=== PATIENT | female | born 1950 | race Caucasian/White ===

== ENCOUNTER 2016-07-02 19:12 | Emergency (ER) | payer MEDICARE, OTHER ==
--- NOTE | ~2016-07-02 | CR170 ---
[facility]. [facility] A Service of [facility] RADIOLOGY TEXT RESULTS PATIENT: CORAL RODAS LOCATION: SED : 46 UNIT #: [id number] AGE: [address]: Jessica Kam SEX: F ORDER DR: [id number] [address] [address] [id number] E MR#: [id number] Acc #: [id number] NAME: CORAL RODAS. : 1950 SEX: F STUDY DATE/TIME: 07/02/2016 21:17 UNIT: SED ROOM: STUDY DESCRIPTION: CR Knee 2 Views Rt Attending Physician: Jessica Kam Pa-C Ordering Physician: Kyle Black M.D. Primary Care Physician: Sonya Camargo MEDICAL IMAGING REPORT This report is preliminary unless electronic signature is present. EXAM Right knee 2 views 07/02/2016 HISTORY Right knee pain status post fall today with swelling. FINDINGS 2 views of the right knee demonstrate no fracture. The bones are normally mineralized and the joint spaces normally maintained. There is a small knee joint effusion. IMPRESSION Small knee joint effusion. No evidence of fracture Dictated by... Juarez Angulo M.D. THIS IS AN ELECTRONICALLY VERIFIED REPORT Juarez Angulo M.D. at 07/03/2016 10:57 AM VAISHNAVI/odilia TD: 07/03/2016 05:18 JOB #: [id number] MEDICAL IMAGING REPORT
--- NOTE | ~2016-07-02 | CT71 ---
[facility] A Service [facility] RADIOLOGY TEXT RESULTS PATIENT: CORAL RODAS LOCATION: SED : 46 UNIT #: [id number] AGE: [address]: Jessica Kam SEX: F ORDER DR: [id number] [address] [address] [id number] E MR#: [id number] Acc #: [id number] NAME: CORAL RODAS. : 1950 SEX: F STUDY DATE/TIME: 07/02/2016 21:36 UNIT: SED ROOM: STUDY DESCRIPTION: CT Head Wo Contrast Attending Physician: Jessica Kam Pa-C Ordering Physician: Kyle Black M.D. Primary Care Physician: Sonya Camargo MEDICAL IMAGING REPORT This report is preliminary unless electronic signature is present. EXAM CT head without contrast dated 07/02/2016. COMPARISON CT head without contrast dated 04/04/2015. HISTORY Patient fell at home with laceration to the right side of the forehead and the eye. This CT exam was performed with one or more of the following radiation dose reduction techniques: automatic exposure control, adjustment of mA and/or kV according to patient size, and iterative reconstruction. FINDINGS CT of the head was obtained without contrast in the axial plane as per the protocol. Motion artifact limits evaluation. No obvious acute large intracranial hemorrhage, hydrocephalus or midline shift is seen after giving allowances to the motion artifact. Nasal septum is deviated to the left with relatively well aerated paranasal sinuses and mastoid air cells. The skull is not fractured in areas without motion artifact. Its evaluation is limited by motion but no gross abnormality could be discerned after giving allowances to it. The soft tissues in the region of the forehead and the eye do not demonstrate any significant large hematoma or obvious underlying ocular abnormality. IMPRESSION Motion artifact limits evaluation. After giving allowance to it no significant large abnormality could be discerned intracranially or in the region of the ocular structures. Dictated by... [facility] A Service [facility] RADIOLOGY TEXT RESULTS PATIENT: CORAL RODAS LOCATION: [facility] #: [id number] : 46 UNIT #: [id number] AGE: [address]: Jessica Kam SEX: F ORDER DR: Vivi Ma M.D. THIS IS AN ELECTRONICALLY VERIFIED REPORT Vivi Ma M.D. at 07/03/2016 10:45 AM CPR/liu TD: 07/03/2016 06:56 JOB #: [id number] MEDICAL IMAGING REPORT
[~2016-07-02 19:12] MED LIST: CITALOPRAM HBR40 M1; FUROSEMIDE40 MG; KCL; LORAZEPAM1 MG; TRAZODONE; ZOCOR
== END 2016-07-03 00:25 ==
LOC: SED 19:12
DX: R41.82 Altered mental status, unspecified (principal); W01.198A Fall on same level from slipping, tripping and stumbling with subsequent striking against other object, initial encounter; Y92.009 Unspecified place in unspecified non-institutional (private) residence as the place of occurrence of the external cause
CPT/HCPCS: 36415; 70450; 73560; 96374; 99285; J2060